=== PATIENT | male | born 1955 | race Caucasian/White ===

== ENCOUNTER 2016-07-24 09:00 | Inpatient (IN) | payer OTHER ==
--- NOTE | ~2016-07-24 | PA ---
Unit #: [id number] #: [id number] Patient: VIRGILIO MIRANDA [id number] [facility] [address] [place] [address] [id number] MR#: [id number] NAME: VIRGILIO MIRANDA. ROOM: 13 Age: 60 Sex: M Admission Date: 07/24/2016 : 1955 Date of Assessment: Attending Physician: Gerald James M.D. Admitting Physician: Gerald James M.D. PSYCHIATRIC ASSESSMENT INFORMANTS The patient reliability, fair informant and chart reliability, good. CHIEF COMPLAINT Mental status change. HISTORY OF PRESENT ILLNESS Mr. Virgilio Miranda is a 60-year-old white male, admitted on a 72-hour hold. The patient lives alone, unable to give any coherent history, disorganized behavior and thought process, and confusion. The patient was assessed at [facility]. The patient reportedly has a history of [place] disease. The patient was admitted on MIW by son. The patient was showing bizarre behavior and paranoid. The patient's tox screen was positive for marijuana. The patient was somewhat confused, disorganized thought process, and making statement about people with guns. The patient has a history of amphetamine abuse. The patient needing inpatient admission at this time for psychiatric stabilization. PAST PSYCHIATRIC HISTORY Unknown for any history of any previous treatment. FAMILY HISTORY AND SOCIAL HISTORY The patient has a poor support system. No history of any abuse. MEDICAL HISTORY Remarkable for history of asthma, COPD, and [place] disease. MEDICATIONS The patient is on diclofenac, prednisone, and Ventolin. ALLERGIES No known drug allergies. SUBSTANCE ABUSE HISTORY History of tobacco use, marijuana abuse, and amphetamine abuse, details unknown at this time. No known history of any IV drug abuse, HIV, or hepatitis. REVIEW OF SYSTEMS HEENT: Eyes, clear. Ears, nose, mouth, and throat; clear. CARDIOVASCULAR: Unremarkable. RESPIRATORY: Unremarkable. GI: Unremarkable. Unit #: [id number] #: [id number] Patient: VIRGILIO MIRANDA : Unremarkable. SKIN: Unremarkable. LYMPH NODE: Unremarkable. NEUROLOGIC: Unremarkable. ENDOCRINE: Unremarkable. HEMATOLOGIC: Unremarkable. ALLERGIC/IMMUNOLOGIC: Unremarkable. MUSCULOSKELETAL: Muscle strength and tone, no atrophy or abnormal movement. Gait normal. MENTAL STATUS EXAMINATION CONSTITUTIONAL: Measurement of vital signs; temperature 98.0, heart rate 66, respiratory rate 14, and blood pressure 129/60. Height 5 feet 9 inches and weight 135 pounds. GENERAL APPEARANCE: The patient dressed in hospital attire. Hygiene and grooming, poor. No facial deformity noted. MUSCULOSKELETAL: Please see above. PSYCHIATRIC EXAMINATION Description of speech, disorganized. Description of thought process, disorganized. Description of association, guarded, paranoid, mood lability, and substance abuse. Description of the patient's judgment: Concerning everyday activity, poor. Social situation, poor. Concerning psychiatric condition, poor. Complete mental status examination; orientation in self. Recent and remote memory, poor. Attention span and concentration, poor. Language, fair. Fund of knowledge, poor. Vocabulary, poor. Mood and affect, sad and dysphoric. Insight and judgment, fair to poor. ASSETS AND LIABILITIES Assets, the patient is articulate and able to take care of his ADL. Liability, substance abuse. ADMITTING DIAGNOSES Psychiatric: Psychosis, not otherwise specified, F29.0; cannabis abuse, moderate, F12.20; and history of amphetamine use disorder, moderate, F15.20. Secondary diagnosis: Deferred. Medical diagnoses: Asthma, chronic obstructive pulmonary disease, and Yazan disease. Stressors: Psychosocial stressors. PSYCHIATRIC PLAN AND TREATMENT GOAL AND DISCHARGE PLAN 1. Advised to admit the patient on the inpatient unit. Provide safe, supportive, and structured environment. 2. Ordered labs; CBC, CMP, UA, and UDS. 3. Precaution for aggression and psychosis. 4. Plan to consider medication such as Zyprexa. The patient to attend all the programing. Obtain collateral information from family. TREATMENT GOAL To attain euthymic mood, gain insight into his problem, and learn coping skills. Unit #: [id number] #: [id number] Patient: VIRGILIO MIRANDA DISCHARGE PLAN Plan to stabilize the patient and consider followup in outpatient program. ESTIMATED LENGTH OF STAY 5 to 7 days. Dictated by... Gerald James M.D. EDGAR/kirill TD: 07/25/2016 20:30 JOB #: [id number] PSYCHIATRIC ASSESSMENT Page 1 of 1 X Gerald James MD X PSYCHIATRIC ASSESSMENT
--- NOTE | ~2016-07-24 | PN ---
Unit #: [id number] #: [id number] Patient: VIRGILIO MIRANDA [id number] [facility] [address] [place] [address] [id number] MR#: [id number] NAME: VIRGILIO MIRANDA. ROOM: P113 Age: 60 Sex: M Admission Date: 07/24/2016 : 1955 Attending Physician: Gerald James M.D. Admitting Physician: Gerald James M.D. Primary Care Physician: Generic Doctor Not In System [facility] PROGRESS NOTES DATE OF SERVICE 07/26/2016 DISCUSSION Virgilio Miranda is a 60-year-old male seen on 07/26/2016. The patient interviewed, chart reviewed. Obtained information from nursing staff. The patient dressed in hospital attire. Disorganized behavior, disorganized thought process. Guarded, paranoid, agitated. Received Ativan 1 mg. The patient unable to give any coherent history. Vital Signs: Stable. Temperature afebrile, pulse 87, respirations 20, blood pressure 120/67. The patient having disorganized behavior, soft spoken, poor articulation. Complete Review of Systems: Unremarkable. MENTAL STATUS EXAMINATION General Appearance: The patient dressed in hospital attire. Disheveled. Hygiene and grooming poor. Orientation in self. Mood and affect labile. Speech: Poor articulation. Disorganized speech. Disorganized thought process. Guarded, paranoid, confused. Recent and remote memory: Poor. Insight and judgment: Poor. DIAGNOSES 1. Psychosis not otherwise specified. 2. Mood disorder not otherwise specified. 3. Cannabis abuse, moderate. ASSESSMENT/PLAN Advised to continue with current medication and therapeutic protocol. If needed, consider further adjustment of medication. Dictated by... Gerald James M.D. EDGAR/thanh TD: 07/28/2016 06:47 JOB #: [id number] Unit #: [id number] #: [id number] Patient: VIRGILIO MIRANDA [facility] PROGRESS NOTES Page 1 of 1 X Gerald James MD PROGRESS NOTE
--- NOTE | ~2016-07-24 | PN ---
Unit #: [id number] #: [id number] Patient: VIRGILIO MIRANDA [id number] [facility] [address] [place] [address] [id number] I MR#: [id number] NAME: VIRGILIO MIRANDA. ROOM: P113 Age: 60 Sex: M Admission Date: 07/24/2016 : 1955 Attending Physician: Gerald James M.D. Admitting Physician: Gerald James M.D. Primary Care Physician: Generic Doctor Not In System [facility] PROGRESS NOTES DATE OF SERVICE: 07/28/2016 DISCUSSION Virgilio Miranda is a 60-year-old male, seen on 07/28/2016. The patient interviewed, chart reviewed, and obtained information from the nursing staff. The patient reported that his aunt and he needs to go. The patient family was contacted. The patient still having some confusion, but making progress. The patient's hygiene and grooming, fair. Pleasant and cooperative, but still having above-mentioned symptoms. REVIEW OF SYSTEMS Complete review of systems unremarkable. MENTAL STATUS EXAMINATION General appearance, the patient dressed in hospital attire. Attention span and concentration, fair. Oriented in place and person. Mood and affect were labile. Speech, poor articulation. Thought process, circumstantial and guarded. Denied any thoughts of harming self or others, but somewhat guarded and isolative. Recent and remote memory, poor. Insight and judgment, poor. DIAGNOSIS 1. Psychosis, not otherwise specified. 2. Mood disorder, not otherwise specified. ASSESSMENT/PLAN Advised to continue with current medication and therapeutic protocol. If needed, consider further adjustment of medication. Dictated by... Declan Cruz/kirill TD: 07/28/2016 23:56 JOB #: [id number] Unit #: [id number] #: [id number] Patient: VIRGILIO MIRANDA PROGRESS NOTES Page 1 of 1 X Gerald James MD PROGRESS NOTE
--- NOTE | ~2016-07-24 | DS ---
Unit #: [id number] #: [id number] Patient: ANAMIKA MIRANDA [id number] [facility] [address] [place] [address] [id number] I MR#: [id number] NAME: ANAMIKA MIRANDA. ROOM: 13 Age: 60 Sex: M Admission Date: 07/24/2016 : 1955 Discharge Date: 07/29/2016 Attending Physician: Gerald James M.D. Primary Care Physician: Generic Doctor Not In System DISCHARGE SUMMARY REASON FOR ADMISSION Confusion and psychosis. DIAGNOSTIC STUDIES LABORATORY RESULTS: None. HOSPITAL COURSE The patient was admitted to inpatient unit on 07/24/2016 and discharged on 07/29/2016. The patient was treated on the inpatient unit with behavior management, psychoeducation, psychotherapy, and structured milieu. The patient was compliant and cooperative and maintained safe behavior, showed improvement in mood symptoms. Subsequently, the patient was discharged with a plan to follow up in outpatient program. DISCHARGE MEDICATIONS Zyprexa 20 mg at bedtime for mood symptom and psychosis. DISCHARGE DIAGNOSES Psychiatric: Psychosis, not otherwise specified, F29.0; cannabis abuse, moderate, F12.20; history of amphetamine use disorder, moderate, F15.20. Secondary diagnosis: Deferred. Medical diagnoses: Asthma, chronic obstructive pulmonary disease, [place] disease. Stressors: Psychosocial stressors. DISCHARGE INSTRUCTIONS The patient to follow up in outpatient clinic as per psych social worker. CONDITION ON DISCHARGE The patient was pleasant and cooperative. Denied any psychotic symptom or any suicidal ideation. PROGNOSIS Guarded. DIET AND ACTIVITY As tolerated. Dictated by... Unit #: [id number] #: [id number] Patient: ANAMIKA MIRANDA Declan Cruz/kirill TD: 07/30/2016 02:01 JOB #: [id number] DISCHARGE SUMMARY Page 1 of 1 X Gerald James MD X DISCHARGE SUMMARY
--- NOTE | ~2016-07-24 | PN ---
Unit #: [id number] #: [id number] Patient: VIRGILIO MIRANDA [id number] [facility] [address] [place] [address] [id number] MR#: [id number] NAME: VIRGILIO MIRANDA. ROOM: P113 Age: 60 Sex: M Admission Date: 07/24/2016 : 1955 Attending Physician: Gerald James M.D. Admitting Physician: Gerald James M.D. Primary Care Physician: Generic Doctor Not In System [facility] PROGRESS NOTES DATE 07/25/2016 DISCUSSION Mr. Virgilio Miranda is a 60-year-old male, seen on 07/25/2016. The patient dressed in hospital attire, disorganized behavior, disorganized thought process, guarded, and paranoid. The patient's labs pending. REVIEW OF SYSTEMS Complete review of systems unremarkable. MENTAL STATUS EXAMINATION General appearance: Patient dressed in hospital attire. Attention span and concentration, poor. Orientation in self. Mood and affect, labile. Speech, disorganized. Thought process, disorganized, guarded, paranoid, attending to internal stimuli. Recent and remote memory, poor. Insight and judgment, poor. DIAGNOSES 1. Psychosis, NOS. 2. Cannabis abuse, moderate. 3. Amphetamine abuse disorder, moderate. ASSESSMENT/PLAN Advised to continue with the current medication and advise Zyprexa 10 mg twice daily, if needed consider further adjustment of medication. Dictated by... Declan Cruz/eveline TD: 07/27/2016 08:30 JOB #: [id number] Unit #: [id number] #: [id number] Patient: VIRGILIO MIRANDA PROGRESS NOTES Page 1 of 1 X Gerald James MD X PROGRESS NOTE
--- NOTE | ~2016-07-24 | HP ---
Unit #: [id number] #: [id number] Patient: VIRGILIO MIRANDA [id number] [place] [address] [id number] I MR#: [id number] NAME: VIRGILIO MIRANDA. ROOM: P113 Age: 60 Sex: M Admission Date: 07/24/2016 : 1955 Attending Physician: Gerald James M.D. Admitting Physician: Gerald James M.D. Primary Care Physician: Generic Doctor Not In System HISTORY AND PHYSICAL HISTORY OF PRESENT ILLNESS Virgilio is a 60 year old, admitted to [address] [place] [id number] on a 72-hour hold because of his mental status change reported to us by his family. He is a poor historian so his history is taken from his chart. PAST MEDICAL HISTORY 1. Brown's disease. 2. Chronic obstructive pulmonary disease. PAST SURGICAL HISTORY Nothing reported. ALLERGIES No known drug allergies. SOCIAL HISTORY He smokes one pack per day. Drinks alcohol on occasion. Denies illicit drug use. FAMILY HISTORY Medically noncontributory. REVIEW OF SYSTEMS He does not answer questions appropriately. CURRENT MEDICATIONS 1. Diclofenac 50 mg b.i.d. 2. Nicotine patch 14 mg daily 3. Milk of magnesia p.r.n. 4. Maalox p.r.n. 5. Tylenol p.r.n. PHYSICAL EXAMINATION GENERAL: Alert, thin gentleman unsteady on his feet, no apparent distress. VITAL SIGNS: blood pressure 128/66, heart rate 86, respirations 16, temperature 98.6. WEIGHT: 135 pounds. HEIGHT: 5 feet 9 inches. SKIN: Warm and dry without rash or lesion. HEENT: Normocephalic. TMs not viewed. Oral and nasal passages clear. Conjunctivae clear. PERRLA. EOMs intact. NECK: Supple without lymphadenopathy or thyromegaly. HEART: Regular rate and rhythm without murmur. Unit #: [id number] #: [id number] Patient: VIRGILIO MIRANDA LUNGS: Clear. ABDOMEN: Soft, nontender. : Not done. EXTREMITIES: No evidence of cyanosis, clubbing or edema. Moves all without focal deficit. NEUROLOGICAL: Unable to complete extended exam, he does move all extremities without focal deficit; however, he is unsteady on his feet. No chorea movements noted. IMPRESSION Psychiatric admission. RECOMMENDATIONS Psychiatric, per psychiatrist. MEDICAL I see no contraindications to participating in facility's activities. MEDICAL PROGNOSIS Poor given his diagnosis of Yazan's in the terminologist. MEDICAL CONDITION Stable. Dictated by... Xochitl Leo P.A.-C. for Declan Sykes/eveline TD: 07/28/2016 12:25 JOB #: [id number] HISTORY AND PHYSICAL Page 1 of 1 X Xochitl Leo X HISTORY AND PHYSICAL
--- NOTE | ~2016-07-24 | PN ---
Unit #: [id number] #: [id number] Patient: VIRGILIO MIRANDA [id number] [facility] [address] [place] [address] [id number] MR#: [id number] NAME: VIRGILIO MIRANDA. ROOM: P113 Age: 60 Sex: M Admission Date: 07/24/2016 : 1955 Attending Physician: Gerald James M.D. Admitting Physician: Gerald James M.D. Primary Care Physician: Generic Doctor Not In System [facility] PROGRESS NOTES DATE OF SERVICE: 07/27/2016 DISCUSSION Mr. Virgilio Miranda is a 60-year-old male, seen on 07/27/2016. The patient interviewed, chart reviewed, and obtained information from nursing staff. The patient dressed in hospital attire, compliant, and cooperative. The patient seems to be less confused, able to answer questions appropriately. The patient is tolerating medication fairly well; still seclusive, isolative, guarded, but no aggression. The patient is showing much improvement. REVIEW OF SYSTEMS Complete review of systems unremarkable. MENTAL STATUS EXAMINATION General appearance, the patient dressed in hospital attire. Attention span and concentration, fair. Oriented in time, place, and person. Mood and affect, sad and dysphoric. Speech, poor articulation. Thought process, goal directed. The patient denied any thoughts of harming self or others or any psychotic symptom, but somewhat guarded. Recent and remote memory, fair to poor. Insight and judgment, fair to poor. DIAGNOSES 1. Mood disorder, not otherwise specified. 2. Psychosis, not otherwise specified. ASSESSMENT/PLAN Advised to continue with current medication and therapeutic protocol. If needed, consider further adjustment of medication. Dictated by... Declan Cruz/fritzl TD: 07/28/2016 01:52 JOB #: [id number] Unit #: [id number] #: [id number] Patient: VIRGILIO MIRANDA PROGRESS NOTES Page 1 of 1 X Gerald James MD X PROGRESS NOTE
== END 2016-07-29 10:45 | disposition home or self-care (01) | DRG 885 ==
LOC: P1S 11:30
DX: F29 Unspecified psychosis not due to a substance or known physiological condition (principal); G10 Huntington's disease; F15.20 Other stimulant dependence, uncomplicated; F12.20 Cannabis dependence, uncomplicated; J44.9 Chronic obstructive pulmonary disease, unspecified; F17.210 Nicotine dependence, cigarettes, uncomplicated; F39 Unspecified mood [affective] disorder